=== PATIENT | male | born 1995 | race Caucasian/White ===

== ENCOUNTER 2019-01-02 22:19 | Emergency (ER) | payer SELFPAY ==
[2019-01-02] MEDS ORDERED: Sodium Chloride 0.9% 10 ML Syringe FLUSH PRN (22:46)
[2019-01-02] MEDS ORDERED: Sodium Chloride 0.9% 1,000 ML IV ONE (22:46)
[2019-01-02] MEDS ORDERED: Ondansetron 4 MG/2 ML SDV IVPUSH ONE (22:46)
[2019-01-02] MEDS ORDERED: Sodium Chloride 0.9% 2.5 ML Syringe FLUSH PRN (22:46)
[2019-01-02] MEDS ORDERED: Pantoprazole 40 MG Vial IVPUSH ONE (22:46)
[2019-01-02] MEDS ORDERED: Alum Hydrox/Mag Hydrox/Simeth 15 ML, Metoclopramide 5 MG, Lidocaine 2% 5 ML PO ONE ×3 (22:46)
--- NOTE | 2019-01-02 22:50 | EDM.PDOC ---
ED HPI GENERAL MEDICAL PROBLEM - General Chief Complaint: Chest Pain Stated Complaint: CHEST PAIN Time Seen by Provider: 01/02/19 22:40 - History of Present Illness INITIAL COMMENTS - FREE TEXT/NARRATIVE: HISTORY AND PHYSICAL: History of present illness: The patient is a 23-year-old male who presents with complaints of mid lower chest/epigastric pain that started prior to coming here associated with some shortness of breath and one episode of vomiting. The patient says that he was drinking alcohol in large amounts earlier and did eat normally and have a normal day. He said he felt the discomfort in his lower mid chest and it did not radiate and then he felt short of breath got nauseated and had the one episode of vomiting which was not black or bloody. He currently says that he feels better after vomiting and has no abdominal pain or nausea but he still has some lower chest discomfort which is only minor and significantly improved from earlier.. He says that he smokes cigarettes but he denies drug use. He tells me that in the past he had an echocardiogram and was diagnosed with a valvular problem by a physician in [place] but he does not follow-up with anybody and he is on no medications. He was never told that he needed to have surgery. He currently is living locally in our region and has not connected with a provider. He says he does not have chest pain on a regular basis. He denies any GI history. Review of systems: As per history of present illness and below otherwise all systems reviewed and negative. Past medical history: As per history of present illness and as reviewed below otherwise noncontributory. Surgical history: As per history of present illness and as reviewed below otherwise noncontributory. Social history: No reported history of drug or alcohol abuse. Family history: As per history of present illness and as reviewed below otherwise noncontributory. Physical exam: General: Well-developed well-nourished thin man who is nontoxic and vital signs are noted by me. HEENT: Atraumatic, normocephalic, pupils reactive, negative for conjunctival pallor or scleral icterus, mucous membranes moist, throat clear, neck supple, nontender, trachea midline. Lungs: Clear to auscultation, breath sounds equal bilaterally, chest nontender. On palpation of the chest wall and anterior neck there is no evidence of any crepitus Heart: S1S2, regular, negative for clicks, rubs, or JVD. I do not appreciate any overt murmur but heart sounds are somewhat distant on my exam. Abdomen: Soft, nondistended, nontender. Negative for masses or hepatosplenomegaly. Negative for costovertebral tenderness. Pelvis: Stable nontender. Genitourinary: Deferred. Rectal: Deferred. Extremities: Atraumatic, negative for cords or calf pain. Neurovascular unremarkable. No pedal edema or leg asymmetry Neuro: Awake, alert, oriented. Cranial nerves II through XII unremarkable. Cerebellum unremarkable. Motor and sensory unremarkable throughout. Exam nonfocal. Diagnostics: EKG CBC CMP amylase lipase troponin chest and abdominal x-ray Therapeutics: IV O2 monitor IV fluids Protonix GI cocktail Zofran The patient Feels significantly improved and we will plan on discharge. Impression: Episode of lower chest pain/epigastric pain with vomiting Definitive disposition and diagnosis as appropriate pending reevaluation and review of above. chest Pain Score (Numeric/FACES): 6 - Related Data Allergies Allergy/AdvReac Type Severity Reaction Status Date / Time No Known Allergies Allergy Verified 01/02/19 22:25 Home Meds: Home Meds . [No Known Home Meds] 01/02/19 [History] Past Medical History Cardiovascular History: Reports: Other (See Below) Other Cardiovascular History: "valve problem" - Past Surgical History Cardiovascular Surgical History: Reports: None Social & Family History - Family History Family Medical History: Noncontributory - Tobacco Use Smoking Status *Q: Current Every Day Smoker Years of Tobacco use: 1 Packs/Tins Daily: 1 - Caffeine Use Caffeine Use: Reports: Energy Drinks - Recreational Drug Use Recreational Drug Use: No ED ROS GENERAL - Review of Systems Review Of Systems: ROS reveals no pertinent complaints other than HPI. ED EXAM, GENERAL - Physical Exam Exam: See Below (See dictation) Course - Vital Signs Last Recorded V/S: Last Vital Signs Temp 36.1 C 01/02/19 22:19 Pulse 93 01/02/19 23:20 Resp 15 01/02/19 23:20 BP 124/76 01/02/19 23:20 Pulse Ox 100 01/02/19 23:20 - Orders/Labs/Meds Orders: Active Orders 24 hr Category Date Time Status Blood Glucose Check, Bedside [RC] ONETIME Care 01/02/19 22:45 Active Cardiac Monitoring [RC] . DIRECTED Care 01/02/19 22:41 Active EKG Documentation Completion [RC] STAT Care 01/02/19 22:41 Active Oxygen Therapy, ED [RC] ASDIRECTED Care 01/02/19 22:41 Active Pulse Oximetry [RC] ASDIRECTED Care 01/02/19 22:41 Active Sodium Chloride 0.9% [Saline Flush] Med 01/02/19 22:46 Active 10 ml FLUSH ASDIRECTED PRN Sodium Chloride 0.9% [Saline Flush] Med 01/02/19 22:46 Active 2.5 ml FLUSH ASDIRECTED PRN Saline Lock Insert [OM.PC] Stat Oth 01/02/19 22:45 Ordered Medication Orders Sodium Chloride (Saline Flush) 10 ml FLUSH ASDIRECTED PRN PRN Reason: Keep Vein Open Last Admin: 01/02/19 23:26 Dose: 10 ml Sodium Chloride (Saline Flush) 2.5 ml FLUSH ASDIRECTED PRN PRN Reason: Keep Vein Open Last Admin: 01/02/19 23:26 Dose: 2.5 ml Labs: Laboratory Tests 01/02/19 01/02/19 01/02/19 Range/Units 23:00 23:00 23:18 WBC 9.36 (4.0-11.0) K/uL RBC 4.58 (4.50-5.90) M/uL Hgb 14.9 (13.0-17.0) g/dL Hct 41.2 (38.0-50.0) % MCV 90.0 (80.0-98.0) fL MCH 32.5 H (27.0-32.0) pg MCHC 36.2 (31.0-37.0) g/dL RDW Std Deviation 42.8 (28.0-62.0) fl RDW Coeff of Alex 13 (11.0-15.0) % Plt Count 257 (150-400) K/uL MPV 10.00 (7.40-12.00) fL Neut % (Auto) 74.6 (48.0-80.0) % Lymph % (Auto) 17.4 (16.0-40.0) % Woodward % (Auto) 6.2 (0.0-15.0) % Eos % (Auto) 1.5 (0.0-7.0) % Baso % (Auto) 0.3 (0.0-1.5) % Neut # (Auto) 7.0 H (1.4-5.7) K/uL Lymph # (Auto) 1.6 (0.6-2.4) K/uL Woodward # (Auto) 0.6 (0.0-0.8) K/uL Eos # (Auto) 0.1 (0.0-0.7) K/uL Baso # (Auto) 0.0 (0.0-0.1) K/uL Nucleated RBC % 0.0 /100WBC Nucleated RBCs # 0 K/uL Sodium 142 (136-148) mmol/L Potassium 3.6 (3.5-5.1) mmol/L Chloride 103 (98-107) mmol/L Carbon Dioxide 26.6 (21.0-32.0) mmol/L BUN 18 (7.0-18.0) mg/dL Creatinine 1.1 (0.8-1.3) mg/dL Est Cr Clr Drug Dosing 111.19 mL/min Estimated GFR (MDRD) > 60.0 ml/min Glucose 98 (74-106) mg/dL POC Glucose 99 (60-110) mg/dL Calcium 8.2 L (8.5-10.1) mg/dL Total Bilirubin 0.4 (0.2-1.0) mg/dL AST 16 (15-37) IU/L ALT 18 (14-63) IU/L Alkaline Phosphatase 83 (46-116) U/L Troponin I < 0.050 (0.000-0.056) ng/mL Total Protein 7.8 (6.4-8.2) g/dL Albumin 4.4 (3.4-5.0) g/dL Globulin 3.4 (2.6-4.0) g/dL Albumin/Globulin Ratio 1.3 (0.9-1.6) Amylase 64 (25-115) U/L Lipase 157 (73-393) U/L Meds: Medications Generic Name Dose Route Start Last Admin Trade Name Freq PRN Reason Stop Dose Admin Sodium Chloride 10 ml 01/02/19 22:46 01/02/19 23:26 Saline Flush FLUSH 10 ml ASDIRECTED PRN Administration Keep Vein Open Sodium Chloride 2.5 ml 01/02/19 22:46 01/02/19 23:26 Saline Flush FLUSH 2.5 ml ASDIRECTED PRN Administration Keep Vein Open Discontinued Medications Generic Name Dose Route Start Last Admin Trade Name Marimar PRN Reason Stop Dose Admin Al Hydroxide/Mg Hydroxide 15 0 ml 01/02/19 22:46 01/02/19 23:18 ml/ Metoclopramide HCl 5 mg/ PO 01/02/19 22:47 1 each Lidocaine HCl 5 ml ONETIME ONE Administration Sodium Chloride 1,000 mls @ 999 mls/hr 01/02/19 22:46 01/02/19 23:00 Normal Saline IV 01/02/19 23:46 999 mls/hr STAT ONE Administration Sodium Chloride Confirm 01/02/19 22:52 01/02/19 23:23 Normal Saline Administered 01/02/19 22:53 20 mls/hr Dose Administration 20 mls @ as directed .ROUTE .STK-MED ONE Ondansetron HCl 4 mg 01/02/19 22:46 01/02/19 23:26 Zofran IVPUSH 01/02/19 22:47 4 mg ONETIME ONE Administration Pantoprazole Sodium 80 mg 01/02/19 22:46 01/02/19 23:23 Protonix Iv IVPUSH 01/02/19 22:47 80 mg .BOLUS ONE Administration Departure - Departure Time of Disposition: 00:45 Disposition: Home, Self-Care 01 Condition: Good Clinical Impression: Atypical chest pain, Epigastric pain Vomiting Qualifiers: Vomiting type: unspecified Vomiting Intractability: unspecified Nausea presence : with nausea Qualified Code(s): R11.2 - Nausea with vomiting, unspecified - Discharge Information Forms: ED Department Discharge Additional Instructions: The following information is given to patients seen in the emergency department who are being discharged to home. This information is to outline your options for follow-up care. We provide all patients seen in our emergency department with a follow-up referral. The need for follow-up, as well as the timing and circumstances, are variable depending upon the specifics of your emergency department visit. If you don't have a primary care physician on staff, we will provide you with a referral. We always advise you to contact your personal physician following an emergency department visit to inform them of the circumstance of the visit and for follow-up with them and/or the need for any referrals to a consulting specialist. The emergency department will also refer you to a specialist when appropriate. This referral assures that you have the opportunity for followup care with a specialist. All of these measure are taken in an effort to provide you with optimal care, which includes your followup. Under all circumstances we always encourage you to contact your private physician who remains a resource for coordinating your care. When calling for followup care, please make the office aware that this follow-up is from your recent emergency room visit. If for any reason you are refused follow-up, please contact the [facility] emergency department at and ask to speak to the emergency department charge nurse. [facility]- [facility] Family [address] [address] Push hydration and avoid alcoholic beverages caffeine and other irritating foods. Please call and schedule follow-up appointment with your provider or one of hours for reevaluation and further care and return to ER as needed and as discussed - My Orders Last 24 Hours: My Active Orders 01/02/19 22:41 Cardiac Monitoring [RC] . DIRECTED EKG Documentation Completion [RC] STAT Oxygen Therapy, ED [RC] ASDIRECTED Pulse Oximetry [RC] ASDIRECTED 01/02/19 22:45 Blood Glucose Check, Bedside [RC] ONETIME Saline Lock Insert [OM.PC] Stat 01/02/19 22:46 Sodium Chloride 0.9% [Saline Flush] 10 ml FLUSH ASDIRECTED PRN Sodium Chloride 0.9% [Saline Flush] 2.5 ml FLUSH ASDIRECTED PRN - Assessment/Plan Last 24 Hours: My Active Orders 01/02/19 22:41 Cardiac Monitoring [RC] . DIRECTED EKG Documentation Completion [RC] STAT Oxygen Therapy, ED [RC] ASDIRECTED Pulse Oximetry [RC] ASDIRECTED 01/02/19 22:45 Blood Glucose Check, Bedside [RC] ONETIME Saline Lock Insert [OM.PC] Stat 01/02/19 22:46 Sodium Chloride 0.9% [Saline Flush] 10 ml FLUSH ASDIRECTED PRN Sodium Chloride 0.9% [Saline Flush] 2.5 ml FLUSH ASDIRECTED PRN
[2019-01-02] MEDS ORDERED: Sodium Chloride 0.9% 20 ML ONE (22:52)
--- NOTE | 2019-01-02 23:15 | CR ---
INDICATION: Chest pain, dyspnea TECHNIQUE: Chest radiograph 1 view COMPARISON: None FINDINGS: Mediastinum: The mediastinum is normal in appearance. The heart silhouette is normal in size and morphology. Lung: Both lungs are unremarkable in appearance. No sign of pleural effusion seen. No pneumothorax is identified. Bone and Soft tissue: Unremarkable for age. IMPRESSION: 1. No acute cardiopulmonary disease is seen. Dictated by: Luis Angel Travis MD @ 01/02/2019 23:13:57 (Electronically Signed)
--- NOTE | 2019-01-02 23:17 | CR ---
INDICATION: Abdominal pain TECHNIQUE: Abdomen/Pelvis radiograph 1 view COMPARISON: None FINDINGS: Bowel: The bowel gas pattern is normal without evidence of bowel obstruction. Most of the abdomen below the umbilicus and pelvis are excluded and cannot be evaluated. Soft tissue: No evidence of pneumoperitoneum present. No suspicious calcifications noted. Bone: Unremarkable for age. IMPRESSIONS: 1. Unremarkable appearance of the visualized abdomen. 2. Most of the abdomen below the umbilicus and pelvis are excluded and cannot be evaluated. Dictated by Luis Angel Travis MD @ 01/02/2019 11:14:51 PM Dictated by: Luis Angel Travis MD @ 01/02/2019 23:14:58 (Electronically Signed)
[2019-01-02 23:29] LABS: BLOOD UREA NITROGEN,BUN 18 mg/dL (7.0-18.0); CARBON DIOXIDE,CO2 26.6 mmol/L (21.0-32.0); CHLORIDE,CL 103 mmol/L (98-107); GLUCOSE RANDOM 98 mg/dL (74-106); LIPASE 157 U/L (73-393); POTASSIUM,K 3.6 mmol/L (3.5-5.1); SODIUM,NA 142 mmol/L (136-148)
== END 2019-01-03 00:58 | disposition home or self-care (01) ==
LOC: MW.ED 22:19
DX: R07.89 Other chest pain (principal); R10.13 Epigastric pain; R11.2 Nausea with vomiting, unspecified; F17.210 Nicotine dependence, cigarettes, uncomplicated
CPT/HCPCS: 36415; 71045; 74018; 80053; 82150; 82962; 83690; 84484; 85025; 93005; 96361; 96374; 96375; 99285; A9270; C9113; J2405; J7040; 99284